=== PATIENT | female | born 1990 | race Caucasian/White ===

== ENCOUNTER 2019-11-17 07:14 | Inpatient (IN) | payer OTHER ==
[~2019-11-17] VITALS: Ht 154.9 cm; Wt 103.4 kg
[2019-11-17] MEDS ORDERED: LACTATED RINGERS 1,000 ML IV SCH (07:31)
[2019-11-17] MEDS ORDERED: METOCLOPRAMIDE 10 MG/2 ML INJ VIAL IVP SCH (07:35)
[2019-11-17] MEDS ORDERED: PREN-380 PO (07:41)
[2019-11-17 07:59] LABS: BASOPHILS % (AUTO) 0.4 % (0.0-2.0); EOSINOPHILS % (AUTO) 0.4 % (0.0-4.0); HEMATOCRIT 36.8 % (36-48); LYMPHOCYTES # (AUTO) 1.7 K/uL (2.5-16.5); LYMPHOCYTES % (AUTO) 16.9 % (20.5-51.1); MEAN CORPUSCULAR HEMOGLOBIN 26 pg (27-31); MEAN CORPUSCULAR HGB CONC 33 g/dL (33-37); MEAN CORPUSCULAR VOLUME 80.1 fL (80-94); MONOCYTES # (AUTO) 1.2 K/uL (0.8-1.0); MONOCYTES % (AUTO) 11.9 % (1.7-9.3); NEUTROPHILS # (AUTO) 7.1 K/uL (1.8-7.7); NEUTROPHILS % (AUTO) 70.4 % (42.2-75.2); PLATELET COUNT (AUTO) 206 K/uL (140-450); WHITE BLOOD COUNT (AUTO) 10.1 K/uL (4.8-10.8)
[2019-11-17 08:39] LABS: PROTHROMBIN TIME 9.2 secs (10.8-13.4)
[2019-11-17 08:52] LABS: ALBUMIN 2.6 g/dL (3.4-5.0); ANION GAP 11.5 (8-16); CARBON DIOXIDE 27.8 mmol/L (21-32); CREATININE 0.7 mg/dL (0.6-1.3); POTASSIUM 4.3 mmol/L (3.5-5.1); TOTAL BILIRUBIN 0.3 mg/dL (0.0-1.0)
--- NOTE | 2019-11-17 09:12 | NUR ---
PATIENT HAS BEEN SCREENED AND CATEGORIZED LOW NUTRITION RISK. PATIENT WILL BE SEEN WITHIN 7 DAYS OF ADMISSION. 11/23/[address]
[2019-11-17] MEDS ORDERED: MORPHINE PRES FREE 10 MG/10 ML AMP IV ONE (11:00)
[2019-11-17] MEDS ORDERED: OXYTOCIN 20 UNITS in LACTATED RINGERS 1,000 ML IV SCH ×2 (11:34→19:37)
[2019-11-17] MEDS ORDERED: NALOXONE 0.4 MG/ML VIAL IVP PRN ×2 (11:35)
[2019-11-17] MEDS ORDERED: KETOROLAC 30 MG/ML VIAL IVP PRN (11:35)
[2019-11-17] MEDS ORDERED: ONDANSETRON 4 MG/2 ML VIAL IVP PRN (11:35)
[2019-11-17] MEDS ORDERED: diphenhydrAMINE 50 MG/ML VIAL IVP PRN (11:35)
[2019-11-17] MEDS: OXYTOCIN 20 UNITS/LR PREMIX 1,000 ML IV ONE ×2 (15:32→15:50)
[2019-11-17] MEDS ORDERED: FUROSEMIDE 20 MG/2 ML VIAL IVP SCH (16:00)
[2019-11-17] MEDS ORDERED: MEASLES, MUMPS, AND RUBELLA 1 VIAL SQVAC PRN (19:40)
[2019-11-17] MEDS ORDERED: HYDROmorphone 1 MG/ML AMP IVP PRN (19:40)
[2019-11-18] MEDS ORDERED: OXYTOCIN 20 UNITS/LR PREMIX 1,000 ML IV ONE (00:45)
[2019-11-18 09:03] LABS: BASOPHILS % (AUTO) 0.3 % (0.0-2.0); EOSINOPHILS % (AUTO) 0.1 % (0.0-4.0); HEMATOCRIT 27.4 % (36-48); HEMOGLOBIN 8.9 g/dL (12.0-16.0); LYMPHOCYTES # (AUTO) 1.7 K/uL (2.5-16.5); LYMPHOCYTES % (AUTO) 11.5 % (20.5-51.1); MEAN CORPUSCULAR HEMOGLOBIN 26 pg (27-31); MEAN CORPUSCULAR HGB CONC 33 g/dL (33-37); MONOCYTES # (AUTO) 1.8 K/uL (0.8-1.0); MONOCYTES % (AUTO) 11.8 % (1.7-9.3); NEUTROPHILS # (AUTO) 11.4 K/uL (1.8-7.7); NEUTROPHILS % (AUTO) 76.3 % (42.2-75.2); PLATELET COUNT (AUTO) 187 K/uL (140-450); RED BLOOD CELL COUNT(AUTO) 3.43 MIL/uL (4.20-5.40); RED CELL DISTRIBUTION WIDTH 16.2 % (11.6-13.7)
[2019-11-18] MEDS: KETOROLAC 30 MG/ML VIAL IVP PRN ×2 (11:02→20:02)
[2019-11-18] MEDS ORDERED: ACETAMINOPHEN 325 MG TAB PO PRN (22:00)
[2019-11-19] MEDS: SIMETHICONE 80 MG TAB.CHEW PO SCH ×5 (08:51→17:09)
[2019-11-19] MEDS: BISACODYL 5 MG TABEC PO SCH (08:51)
[2019-11-19] MEDS: DOCUSATE SODIUM 100 MG GELCAP PO SCH (08:52)
[2019-11-19] MEDS ORDERED: SODIUM PHOSPHATE 118 ML ENEM RC PRN (09:00)
[2019-11-19] MEDS: IBUPROFEN 600 MG TAB PO PRN ×2 (14:44→22:52)
[2019-11-20] MEDS: SIMETHICONE 80 MG TAB.CHEW PO SCH (13:00)
[2019-11-20] MEDS ORDERED: predniSONE 20 MG TAB PO SCH (20:20)
[2019-11-21] MEDS: BISACODYL 5 MG TABEC PO SCH (09:00)
[2019-11-21] MEDS: DOCUSATE SODIUM 100 MG GELCAP PO SCH (09:00)
[2019-11-21] MEDS ORDERED: predniSONE 20 MG TAB PO SCH (12:00)
== END 2019-11-21 15:25 | disposition home or self-care (01) | DRG 540 ==
LOC: MLD 07:14 → MFCC 12:00
PROVIDERS: ADMIT Obstetrics & Gynecology; ATTEND Obstetrics & Gynecology
PROC: 10D00Z1 Extraction of Products of Conception, Low, Open Approach (ICD-10-PCS; principal; 2019-11-21)
PROC: 0UB70ZZ Excision of Bilateral Fallopian Tubes, Open Approach (ICD-10-PCS; 2019-11-21)
PROC: 0HB7XZZ Excision of Abdomen Skin, External Approach (ICD-10-PCS; 2019-11-21)
DX: O34.211 Maternal care for low transverse scar from previous cesarean delivery (principal); E66.9 Obesity, unspecified; O69.81X0 Labor and delivery complicated by cord around neck, without compression, not applicable or unspecified; O99.214 Obesity complicating childbirth; N73.6 Female pelvic peritoneal adhesions (postinfective); O99.89 Other specified diseases and conditions complicating pregnancy, childbirth and the puerperium; Z3A.38 38 weeks gestation of pregnancy; Z37.0 Single live birth; Z30.2 Encounter for sterilization
CPT/HCPCS: 36415; 51702; 80053; 85025; 85610; 85730; 86592; 86886; 86900; 86901; 87070; 87075; 87081; 87086; 87186; 87205; J0690; J1200; J1885; J1940; J2270; J2405; J2590; J7060; J7120; J7512